=== PATIENT | female | born 1985 | race Hispanic/Latino ===

== ENCOUNTER 2018-08-18 09:41 | Inpatient (IN) ==
[~2018-08-18 09:41] MED LIST: PITOCIN IM ONE
[2018-08-18] MEDS ORDERED: LR 500 ML IV ONE (10:09)
[2018-08-18] MEDS ORDERED: STADOL IV PRN (10:09)
[2018-08-18] MEDS ORDERED: PEPCID PO PRN (10:09)
[2018-08-18] MEDS ORDERED: PEPCID PO ONE (10:09)
[2018-08-18] MEDS ORDERED: REGLAN PO ONE (10:09)
[2018-08-18] MEDS ORDERED: ZOFRAN IV PRN (10:09)
[2018-08-18] MEDS ORDERED: TYLENOL PO PRN (10:09)
[2018-08-18] MEDS ORDERED: PEPCID IV PRN (10:09)
[2018-08-18] MEDS ORDERED: KEFZOL 1 GM/D5W 1 GM/50 ML IVPB IV PRN (10:09)
[2018-08-18] MEDS ORDERED: PITOCIN 30 UNITS/NS 30 UNIT/500 ML IV.SOLN IV SCH ×2 (10:15→12:34)
[2018-08-18] MEDS ORDERED: LR 1,000 ML IV SCH (10:15)
[2018-08-18] MEDS ORDERED: SODIUM CHLORIDE 0.9% INJ SCH (10:15)
[2018-08-18] MEDS ORDERED: M-M-R II VACCINE SUBQ ONE (10:20)
[2018-08-18] MEDS ORDERED: PERI MEDS (DERMOPLAST/NUPERCAINAL/TUCKS) MISC PRN (10:20)
[2018-08-18] MEDS ORDERED: MINERAL OIL PO PRN (10:20)
[2018-08-18] MEDS ORDERED: ATARAX PO PRN (10:20)
[2018-08-18] MEDS ORDERED: CYTOTEC PO PRN (10:20)
[2018-08-18] MEDS ORDERED: AMBIEN PO PRN (10:20)
[2018-08-18] MEDS ORDERED: BOOSTRIX VACCINE IM ONE (10:20)
[2018-08-18] MEDS ORDERED: XYLOCAINE-MPF 1% INJ PRN (10:20)
[2018-08-18] MEDS ORDERED: PITOCIN IM PRN ×2 (10:20→10:35)
[2018-08-18] MEDS ORDERED: BENADRYL IV PRN (10:20)
[2018-08-18] MEDS ORDERED: BENADRYL PO PRN (10:20)
[2018-08-18] MEDS ORDERED: HYDROXYZINE IM PRN (10:20)
--- NOTE | 2018-08-18 10:31 | H&P REVIEW ---
H&P Update H&P Review: H&P was reviewed and patient was examined (No changes) Document any changes: 33 yo HF No care. Does not speak [place] Progress Note OB - . OB Progress Note: 33 yo HF ? LMP with no Care, Does not speak [place] African. Here with an fire alarm technician. C/o ctxs that started 8 am, ROM mec at 0915. Pt presented Rim/C/-3 and delivered approx 15 mins later. No vag bleeding pos FM PMH - None PSH - none Pobhx - 6 uncomplicated Meds - none allergies - none SH - NC VSSAF GEn - pt in no apparent distress, A&O x 3 ABD soft, NT, gravid Extrem - no CCE A/p - Admit - No IV started due to subsequent delivery. IM pitocin given.
--- NOTE | 2018-08-18 10:46 | OPERATIVE NOTE ---
PROCEDURE DATE : DELIVERY RECORD This is a 33-year-old female G 7 P 7, who arrived with no care, does not speak [place]ron[place], that had an asl interpreter present, after admission subsequently delivered female 5 pounds 14 ounces, Apgars 9 and 10, placenta delivered uncomplicated, 3 vessel cord, cord gases sent. Meconium fluid. Vaginal delivery. Intact perineum. IM pit given. Fundus firm.
[2018-08-18 11:28] LABS: BASO# 0.02 X1000 (0.0-0.2); BASO% 0.2 % (0.0-0.8); EOS# 0.01 X1000 (0.0-0.7); EOS% 0.1 % (0.0-10.0); HEMATOCRIT 33.8 % (37.0-47.0); HEMOGLOBIN 11.4 g/dL (12.0-16.0); IMM GRAN# 0.02 X1000 (0.0-0.04); IMM GRAN% 0.2 % (0.0-0.5); LYMPH% 7.6 % (20.5-51.1); MCH 29.5 PG (27-31); MCHC 33.7 g/dL (33-37); MCV 87.6 FL (81-99); MONO# 0.51 X1000 (0.11-0.59); MONO% 4.3 % (1.7-9.3); MPV 10.3 FL (7.4-10.4); NEUT# 10.39 X1000 (1.4-6.5); NEUT% 87.6 % (42.2-75.2); PLT 219 X1000 (130-400); RBC 3.86 XMIL (4.2-5.4); RDW 13.5 % (11.5-14.5); WBC 11.85 X1000 (4.8-10.8)
[2018-08-18 11:58] LABS: RAPID HIV PRESUMPTIVE NEGATIVE
[2018-08-18 13:17] LABS: ANISOCYTOSIS 1+; LYMPHS 8 % (21-51); MONO 3 % (1-9); SEGS 89 % (42-75)
[2018-08-18] MEDS ORDERED: PITOCIN 20 UNITS/NS 20 UNITS/1,000 ML IV.SOLN IV SCH (13:45)
[2018-08-18] MEDS: MOTRIN PO PRN ×2 (13:46→22:44)
[2018-08-18] MEDS: PERICOLACE PO SCH (22:44)
[2018-08-18 23:04] LABS: RUBELLA SCREEN NON IMMUNE (IMMUNE)
[2018-08-19 06:26] LABS: BASO# 0.03 X1000 (0.0-0.2); BASO% 0.4 % (0.0-0.8); EOS# 0.05 X1000 (0.0-0.7); EOS% 0.7 % (0.0-10.0); HEMATOCRIT 26.8 % (37.0-47.0); HEMOGLOBIN 8.7 g/dL (12.0-16.0); IMM GRAN# 0.04 X1000 (0.0-0.04); IMM GRAN% 0.6 % (0.0-0.5); LYMPH# 1.66 X1000 (1.2-3.4); LYMPH% 23.1 % (20.5-51.1); MCHC 32.5 g/dL (33-37); MCV 89.3 FL (81-99); MONO# 0.45 X1000 (0.11-0.59); MONO% 6.3 % (1.7-9.3); NEUT# 4.95 X1000 (1.4-6.5); NEUT% 68.9 % (42.2-75.2); PLT 208 X1000 (130-400); RDW 13.7 % (11.5-14.5); WBC 7.18 X1000 (4.8-10.8)
--- NOTE | 2018-08-19 09:53 | OB/GYN PROGRESS NOTE ---
Progress Note OB - . Patient Problems: Current Active Problems Problem Status Onset Precipitate labor, with delivery Acute OB Progress Note: Vital Signs - 24 hr 08/18/18 13:48 08/18/18 15:23 08/18/18 19:55 Temperature 98.8 F 98.5 F 97.7 F Pulse Rate 71 65 81 Respiratory Rate 16 14 16 Blood Pressure 99/60 98/56 103/62 O2 Sat by Pulse Oximetry 99 98 99 08/18/18 23:50 08/19/18 08:05 Temperature 98.4 F 97.1 F L Pulse Rate 80 66 Respiratory Rate 16 18 Blood Pressure 96/59 89/51 O2 Sat by Pulse Oximetry 100 99 Laboratory Results - last 24 hr 08/18/18 08/18/18 08/18/18 11:10 11:10 11:10 WBC RBC Hgb Hct MCV MCH MCHC RDW Std Deviation Plt Count MPV Immature Gran % (Auto) Neut % (Auto) Lymph % (Auto) Luna % (Auto) Eos % (Auto) Baso % (Auto) Immature Gran # (Auto) Neut # (Auto) Lymph # (Auto) Luna # (Auto) Eos # (Auto) Baso # (Auto) Segmented Neutrophils Lymphocytes Monocytes Anisocytosis Glucose 81 RPR NON-REACTIVE HIV 1&2 Antibody Rapid PRESUMPTIVE NEGATIVE Rubella Immunity Screen NON IMMUNE H Blood Type Antibody Screen 08/18/18 08/18/18 08/19/18 11:10 11:10 05:47 WBC 11.85 H 7.18 RBC 3.86 L 3.00 L Hgb 11.4 L 8.7 L D Hct 33.8 L 26.8 L D MCV 87.6 89.3 MCH 29.5 29.0 MCHC 33.7 32.5 L RDW Std Deviation 13.5 13.7 Plt Count 219 208 MPV 10.3 10.0 Immature Gran % (Auto) 0.2 0.6 H Neut % (Auto) 87.6 H 68.9 Lymph % (Auto) 7.6 L 23.1 Luna % (Auto) 4.3 6.3 Eos % (Auto) 0.1 0.7 Baso % (Auto) 0.2 0.4 Immature Gran # (Auto) 0.02 0.04 Neut # (Auto) 10.39 H 4.95 Lymph # (Auto) 0.90 L 1.66 Luna # (Auto) 0.51 0.45 Eos # (Auto) 0.01 0.05 Baso # (Auto) 0.02 0.03 Segmented Neutrophils 89 H Lymphocytes 8 L Monocytes 3 Anisocytosis 1+ Glucose RPR HIV 1&2 Antibody Rapid Rubella Immunity Screen Blood Type O POSITIVE Antibody Screen NEGATIVE PPD 1 without difficultly. Pt is without complaints. Fundus is firm and nontender. no calf tenderness. NL lochia A/P: Stable. Probable discharge tomorrow.
[2018-08-19 11:08] LABS: URINE SOURCE VOIDED
[2018-08-19 11:20] LABS: BILIRUBIN URINE NEGATIVE (NEGATIVE); BLOOD URINE 4+ (NEGATIVE); CLARITY VERY CLOUDY (CLEAR); COLOR YELLOW; GLUCOSE URINE NEGATIVE (NEGATIVE); KETONE URINE NEGATIVE (NEGATIVE); LEUKOCYTES URINE 1+ (NEGATIVE); NITRITE URINE NEGATIVE (NEGATIVE); PROTEIN URINE 1+(30 mg/dL) mg/dL (NEGATIVE); UROBILINOGEN URINE NORMAL
[2018-08-19 11:21] LABS: UR AMPHETAMINES QUAL NONE DETECTED (NONE DETECT); UR BARBITUATES QUAL NONE DETECTED (NONE DETECT); UR BENZODIAZEPIN QUAL NONE DETECTED (NONE DETECT); UR CANNABINOIDS QUAL NONE DETECTED (NONE DETECT); UR COCAINE QUAL NONE DETECTED (NONE DETECT); UR METHADONE QUAL NONE DETECTED (NONE DETECT); UR METHAMPHETAMINE QUAL NONE DETECTED (NONE DETECT); UR OPIATES QUAL NONE DETECTED (NONE DETECT); UR OXYCODONE QUAL NONE DETECTED (NONE DETECT); UR PCP QUAL NONE DETECTED (NONE DETECT); UR PROPOXYPHENE QUAL NONE DETECTED (NONE DETECT); UR TCA QUAL NONE DETECTED (NONE DETECT)
[2018-08-19] MEDS: MOTRIN PO PRN (11:51)
[2018-08-19] MEDS: PERICOLACE PO SCH (20:35)
--- NOTE | 2018-08-20 08:54 | OB/GYN PROGRESS NOTE ---
Progress Note OB - . Patient Problems: Current Active Problems Problem Status Onset Precipitate labor, with delivery Acute OB Progress Note: Vital Signs - 24 hr 08/19/18 11:45 08/19/18 16:00 08/19/18 20:38 Temperature 97.7 F 96.6 F L 98.4 F Pulse Rate 76 80 73 Respiratory Rate 18 18 16 Blood Pressure 91/55 85/50 115/69 O2 Sat by Pulse Oximetry 99 100 100 Laboratory Results - last 24 hr 08/19/18 08/19/18 09:20 09:20 Urine Source VOIDED Urine Color YELLOW Urine Clarity VERY CLOUDY A Urine pH 5.0 Ur Specific [place] 1.010 Urine Protein 1+(30 mg/dL) A Urine Ketones NEGATIVE Urine Blood 4+ Urine Nitrite NEGATIVE Urine Bilirubin NEGATIVE Urine Urobilinogen NORMAL Urine WBC 1+ A Urine Glucose NEGATIVE Urine Opiates Screen NONE DETECTED Ur Oxycodone Screen NONE DETECTED Urine Methadone Screen NONE DETECTED U Propoxyphene Qual NONE DETECTED Ur Barbituates Screen NONE DETECTED Ur Tricyclics Screen NONE DETECTED Ur Phencyclidine Scrn NONE DETECTED Ur Amphetamines Screen NONE DETECTED U Methamphetamines Scrn NONE DETECTED U Benzodiazepines Scrn NONE DETECTED Urine Cocaine Screen NONE DETECTED U Cannabinoids Screen NONE DETECTED Pt doing well no complaints. pain controlled minimal lochia unsure about control O: Vitals as above Gen: AAOx3 NAD CV: RRR no g/m/r Lungs: CTAB no w/r/r Abd: +BS soft kimmy fundus firm Ext: no c/c/e A: PPD#2 s/o Anemia P: D/C home
[2018-08-20 08:55] VITALS: BP 91/53
[2018-08-20 17:27] LABS: HIV ANTIBODY SCREEN SEE COMMENTS
[2018-08-21 07:38] LABS: HEPATITIS B SURFACE ANTIGEN SEE COMMENTS
== END 2018-08-20 18:40 | disposition home or self-care (01) | DRG 807 ==
LOC: P.LD 09:41
PROVIDERS: ADMIT Obstetrics & Gynecology; ATTEND Obstetrics & Gynecology
CPT/HCPCS: 80104; 80301; 80305; 81003; 82947; 85025; 86592; 86701; 86703; 86762; 86850; 86900; 86901; 87340; 87389; 87390; 87491; 87591; 90707; 90715; A9270; G0431; G0434; G0477; J2590